=== PATIENT | female | born 1995 | race Caucasian/White ===

== ENCOUNTER 2021-10-19 16:24 | Observation (INO) | payer BC ==
[~2021-10-19] VITALS: Ht 172.7 cm; Wt 83.5 kg
== END 2021-10-19 17:45 | disposition home or self-care (01) ==
LOC: SPU 16:24
PROVIDERS: ADMIT Obstetrics & Gynecology; ATTEND Obstetrics & Gynecology
DX: O62.9 Abnormality of forces of labor, unspecified (principal); Z3A.29 29 weeks gestation of pregnancy
CPT/HCPCS: G0378

== ENCOUNTER 2022-11-20 09:36 | Emergency (ER) | payer SELFPAY ==
[~2022-11-20] VITALS: Ht 170.2 cm; Wt 72.6 kg
[2022-11-20 09:40] VITALS: BP_SYST 118
--- NOTE | 2022-11-20 09:40 | NUR ---
Pt brought by self, A&Ox4, pt presents to ER with sore throat x 3 days, cough, congestion , skin pink and warm,afebrile, denies SOB or chest pain, will cont to monitor.
--- NOTE | 2022-11-20 09:42 | NUR ---
Dr Thomas evaluating patient in the waiting room
--- NOTE | 2022-11-20 09:53 | NUR ---
COVID AND INFLUENZA SWABS COLLECTED, LABELED AND SENT TO LAB VIA EMT.
[2022-11-20] MEDS ORDERED: IBUP-1969 PO (11:26)
[2022-11-20] MEDS ORDERED: PSEU30TA36 PO (11:26)
[2022-11-20 11:50] VITALS: BP_SYST 118
--- NOTE | 2022-11-20 12:04 | NUR ---
Patient given written and verbal discharge instructions and verbalizes understanding. ER MD discussed with patient the results and treatment provided. Patient in stable condition. ID arm band removed. Rx of Ibuprofen and Sudafed given. Patient educated on pain management and to follow up with PMD. Pain Scale 3/10 tolerable for patient. Opportunity for questions provided and answered. Medication side effect fact sheet provided.
== END 2022-11-20 12:04 | disposition home or self-care (01) ==
LOC: SED 09:36
DX: J40 Bronchitis, not specified as acute or chronic (principal); J02.9 Acute pharyngitis, unspecified; R05.9 Cough, unspecified; Z79.899 Other long term (current) drug therapy; Z20.822 Contact with and (suspected) exposure to COVID-19
CPT/HCPCS: 36415; 71045; 81025; 99284

== ENCOUNTER 2023-07-21 22:58 | Emergency (ER) | payer BC ==
[~2023-07-21] VITALS: Ht 170.2 cm; Wt 71.2 kg
[~2023-07-21 22:58] MED LIST: IBUP-1969 PO; PSEU30TA36 PO
[2023-07-21 23:19] VITALS: BP_SYST 113; PULSE 74; RESP 18; TEMP 98.3; O2SAT 99
[2023-07-21 23:58] LABS: COVID19 ANTIGEN SOFIA FIA NEGATIVE (NEGATIVE)
[2023-07-22 00:25] LABS: INFLUENZA TYPE A Negative (NEGATIVE); INFLUENZA TYPE B NEGATIVE (NEGATIVE)
[2023-07-22] MEDS ORDERED: DIPHENHYDRAMINE HCL 50 MG CAPSULE PO ONE (01:30)
[2023-07-22] MEDS ORDERED: BENZ100C92 PO (02:09)
[2023-07-22 02:28] VITALS: BP_SYST 118; PULSE 73; RESP 21; TEMP 98.2; O2SAT 98
== END 2023-07-22 02:28 | disposition home or self-care (01) ==
LOC: SED 22:58
DX: J20.9 Acute bronchitis, unspecified (principal); Z79.899 Other long term (current) drug therapy; Z20.822 Contact with and (suspected) exposure to COVID-19
CPT/HCPCS: 99284; 87426; 87804 ×2; 71046; Q0163; 36415